=== PATIENT | male | born 1945 | race Caucasian/White ===

== ENCOUNTER → 2020-09-28 12:39 | Outpatient (CLI) | payer MEDICARE, SELFPAY ==
--- NOTE | ~2020-09-28 | XR_ITS ---
XR lumbar spine 2-3V DATE: 09/28/2020 13:10 INDICATION: Back pain TECHNIQUE: AP, lateral, coned lateral lumbosacral views COMPARISON: None FINDINGS: There is mild dextroscoliosis of the thoracolumbar spine. Prominent degenerative changes in the lower thoracic spine. There is multilevel degenerative disc disease of the lumbar spine. No fracture or bone destruction or spondylolisthesis. The lumbar pedicles and included lower thoracic pedicles are intact. The sacroiliac joints are intact. There is extensive calcification of the abdominal aorta without evidence of aneurysm IMPRESSION: Degenerative changes of the thoracic and lumbar spine Reviewed, dictated and finalized at location A. WORKER
== END ==
PROVIDERS: PCP Family Medicine; Visit Provider Nurse Practitioner
DX: M51.34 Other intervertebral disc degeneration, thoracic region (principal); M51.36 Other intervertebral disc degeneration, lumbar region
CPT/HCPCS: 72100

== ENCOUNTER 2021-11-22 08:33 | Outpatient (CLI) | payer MEDICARE, OTHER, SELFPAY ==
--- NOTE | ~2021-11-22 | US_ITS ---
EXAMINATION: US aorta [facility] DATE: 11/22/2021 10:37 NETSUITE CONSULTANT INDICATION: Screening TECHNIQUE: Grayscale, color Doppler, and pulsed Doppler images of the aorta and common iliac arteries were obtained. COMPARISON: None. FINDINGS: The proximal aorta measures 2.2 cm greatest sagittal dimension. The mid aorta measures 2.1 cm greates t sagittal dimension. The distal aorta measures 1.9 cm greatest sagittal dimension. The right common internal iliac artery measures 1.3 cm. The left common iliac artery measures 1.3 cm. IMPRESSION: 1. Normal caliber abdominal aorta without aneurysm. Reviewed, dictated and finalized at location B. UITE CONSULTANT
== END 2021-11-22 08:34 | disposition home or self-care (01) ==
PROVIDERS: PCP Family Medicine; Visit Provider Family Medicine
DX: Z13.6 Encounter for screening for cardiovascular disorders (principal); Z87.891 Personal history of nicotine dependence
CPT/HCPCS: 76706

== ENCOUNTER 2022-01-30 14:58 | Emergency (ER) | payer MEDICARE, OTHER, SELFPAY ==
[2022-01-30 15:05] VITALS: BP 143/64; PULSE 60; RESP 20; TEMP 36.7; O2SAT 100
--- NOTE | 2022-01-30 15:25 | ED.URI ---
HPI - URI/Sore Throat General Chief Complaint: Upper Respiratory Infection Stated Complaint: Cough Time Seen by Provider: 01/30/22 15:20 Source: patient and RN notes reviewed History of Present Illness HPI Narrative: Patient is a 76-year-old male who presents the urgent care with complaints of coughing fits/spasms since Saturday. Patient states that he has been taking Claritin and Delsym without much relief. Denies of any known ill exposures. Denies any fever, chills, nausea or vomiting. Denies of chest pain or shortness of breath. No other acute complaints. No acute distress noted. Patient aware of the plan of care. Some parts of this dictation were generated by voice recognition software and may contain typographical and/or grammatical inaccuracies. Related Data Allergies Allergy/AdvReac Type Severity Reaction Status Date / Time No Known Allergies Allergy Verified 01/30/22 15:32 Review of Systems Review of Systems: CONSTITUTIONAL: Denies fever, chills, or sweats. EYES: Denies visual changes, redness, or discharge. ENT: Denies rhinorrhea, congestion, sore throat, or otalgia. CARDIOVASCULAR: Denies chest pain, palpitations, or edema. RESPIRATORY: Reports of cough spasms GASTROINTESTINAL: Denies abdominal pain, nausea, vomiting, or diarrhea. GENITOURINARY: Denies dysuria or hematuria. SKIN: Denies rash or itching. MUSCULOSKELETAL: Denies back pain, joint pain, or myalgia. NEUROLOGIC: Denies headache, numbness, or weakness. All other systems reviewed are negative, except as documented in HPI. [facility], [facility] Past Medical History Medical History (Updated 01/30/22 @ 15:36 by STEPHANI Mercado) Dyslipidemia Essential (primary) hypertension Surgical History Surgical History History of tonsillectomy and adenoidectomy 1951 [place] teeth extracted 1962 Social History Social History Smoking status: Never smoker Tobacco type: cigarettes Second hand tobacco smoke exposure: No Smoking end date: 09/30/92 Alcohol intake: never Substance use: never Substance use type: does not use Comments At the time of my signature, I reviewed and agree with the nursing past medical, surgical, social, and family history. There is no relevant family history pertinent to the patient complaint. Exam Narrative: GENERAL: This is a well-nourished, well-developed patient, in no apparent distress. HEAD: normocephalic, atraumatic. EYES: PERRL. Sclera clear/white. Vision is grossly intact. EARS: External ears normal, auditory canals clear and without drainage, TMs normal without perforation. Hearing grossly intact. NOSE: External nose normal with no obvious nasal discharge, nares without redness, no rhinorrhea. THROAT: Mucous membranes moist, posterior pharynx clear. NECK: Neck supple CARDIOVASCULAR: Regular rate and rhythm RESPIRATORY: Bronchospasms with deep breathing. Clear to auscultation. Breath sounds equal bilaterally. No wheezes, rales, or rhonchi. SKIN: warm, intact with no suspicious lesions or rash, good texture and turgor. NEURO: awake, alert, and oriented to person, place and time. There were no obvious focal neurologic abnormalities. EXTREMITIES: No clubbing, cyanosis, or edema. Course Course Level of Care: Express Care Visit Vital Signs Vital signs: Vital Signs Temperature 98.1 F 01/30/22 15:05 Pulse Rate 60 01/30/22 15:05 Respiratory Rate 20 01/30/22 15:05 Blood Pressure 143/64 H 01/30/22 15:05 Pulse Oximetry 100 01/30/22 15:05 Temperature 98.1 F 01/30/22 15:05 Pulse Rate 60 01/30/22 15:05 Respiratory Rate 20 01/30/22 15:05 Blood Pressure 143/64 H 01/30/22 15:05 Pulse Oximetry 100 01/30/22 15:05 Reviewed-patient is informed that they may have pre-hypertension or hypertension based on a blood pressure reading in the department. I recommend the patient call the prima
== END 2022-01-30 15:38 | disposition home or self-care (01) ==
PROVIDERS: Emergency Provider Nurse Practitioner Family
DX: J98.01 Acute bronchospasm (principal); E78.5 Hyperlipidemia, unspecified; I10 Essential (primary) hypertension
CPT/HCPCS: 99213; G0463

== ENCOUNTER 2022-04-26 10:28 | Outpatient (CLI) | payer MEDICARE, OTHER, SELFPAY ==
[2022-04-26 19:27] LABS: Alanine Aminotransferase 20 U/L (6-50); Albumin Level 4.2 g/dL (3.5-5.1); Alkaline Phosphatase 52 U/L (38-126); Anion Gap 8 mmol/L (8-16); Aspartate Amino Transferase 29 U/L (17-59); Bilirubin,Total 0.6 mg/dL (0.2-1.3); Blood Urea Nitrogen 18 mg/dL (9-20); Calcium 9.3 mg/dL (8.4-10.2); Carbon Dioxide 30 mmol/L (22-30); Chloride 99 mmol/L (98-107); Estimated Glomerular Filt Rate > 60; Glucose 103 mg/dL (65-110); Potassium 4.3 mmol/L (3.4-5.0); Sodium 137 mmol/L (137-145)
[2022-04-26 20:02] LABS: Hemoglobin A1C 5.7 % (<5.7)
== END 2022-04-26 10:29 | disposition home or self-care (01) ==
LOC: ANHGOSHLAB 10:32
PROVIDERS: PCP Family Medicine; Visit Provider Family Medicine
DX: R73.9 Hyperglycemia, unspecified (principal); E78.5 Hyperlipidemia, unspecified; I10 Essential (primary) hypertension
CPT/HCPCS: 36415; 80053; 83036

== ENCOUNTER 2022-11-20 09:57 | Emergency (ER) | payer MEDICARE, OTHER, SELFPAY ==
[2022-11-20 10:04] VITALS: BP 130/80; PULSE 63; RESP 18; TEMP 36.3; O2SAT 99
--- NOTE | 2022-11-20 10:14 | ED.URI ---
HPI - URI/Sore Throat General Chief Complaint: Upper Respiratory Infection Stated Complaint: Cough/Chest Congestion Time Seen by Provider: 11/20/22 10:10 Source: patient, RN notes reviewed and old records reviewed Mode of arrival: ambulatory Limitations: no limitations History of Present Illness HPI Narrative: 77 year old male presents to the [facility] care with complaints of cough and sneezing for the past 3 days. Patient reports that it is hard to sleep at night due to continuous coughing. He reports that he has taken some Mucinex DM and he also used his inhaler which didn't help. He states that cough is harsh and nonproductive and denies any shortness of breath.,reports no known fevers. MD elicited complaint: cough and rhinorrhea Onset (ago): day(s) (3) Treatments prior to arrival: other (Mucinex DM and used his 's inhaler once) Related Data Home Medications Medication Instructions Recorded Confirmed ascorbic acid (vitamin C) 100 mg 100 mg PO DAILY 11/07/22 11/07/22 tablet Allergies Allergy/AdvReac Type Severity Reaction Status Date / Time No Known Allergies Allergy Verified 11/07/22 14:55 Review of Systems Review of Systems: CONSTITUTIONAL: Denies malaise, chills, sweats, or fever. EYES: Denies visual changes, redness, or discharge. ENT: Reports rhinorrhea, congestion,no sinus pain, no otalgia or sore throat. CARDIOVASCULAR: Denies chest pain, palpitations, or edema. RESPIRATORY: Reports cough.? Denies dyspnea. GASTROINTESTINAL: Denies abdominal pain, nausea, vomiting, diarrhea SKIN: Denies rash or itching. MUSCULOSKELETAL: Denies myalgia. NEUROLOGIC: Denies headache. All systems reviewed & are unremarkable except as noted in HPI and below PMFSH Past Medical History Medical History Dyslipidemia Essential (primary) hypertension Vitamin D deficiency Surgical History Surgical History History of tonsillectomy and adenoidectomy 1951 [place] teeth extracted 1962 Social History Social History Smoking status: Never smoker Tobacco type: cigarettes Second hand tobacco smoke exposure: No Smoking end date: 09/30/92 Alcohol intake: never Substance use: never Substance use type: does not use Lack of Transportation: No Lack of Food: Never True Current Housing: I Have Housing Concerned About Future Housing: No Difficulty Paying Gas/Electric Bills: No Difficulty Paying for Meds: No Currently Unemployed: No Education: Bachelor's Degree Difficulty w/ Childcare or Family Care: No Comments At time of signature, agree with nursing past medical, surgical, social and family history. There is no relevant family history pertinent to the presenting complaint Exam Narrative: GENERAL: Well-appearing, well-nourished, and in no acute distress. HEAD: Normocephalic EYES: PERRLA, conjunctivae clear ENT: Nares clear, turbinates edematous and erythematous, clear discharge. Mucous membranes moist. TM pearly fox with dull light reflex bilaterally; no tragal tenderness. Oropharynx erythematous without lesions. Tonsils not present and throat without exudate, no drooling, no hoarseness, no trismus, uvula midline. NECK: Supple. No lymphadenopathy CHEST: Clear to auscultation, breath sounds equal. No wheezing, rhonchi, rales, or stridor. No respiratory distress, speaks in full sentences.harsh non productive cough,SAO2 99% on room air HEART: Regular rate and rhythm. No murmur heard. SKIN: Warm, dry, no rash. NEURO: Alert and oriented x3. PSYCH: Normal mood and affect Course Course Emergency Course: Patient is aware of diagnosis, understands and agrees to treatment plan.? Anticipatory guidance given.? Patient agrees to follow-up as directed and is aware of reasons to seek care at the emergency depa
== END 2022-11-20 10:47 | disposition home or self-care (01) ==
PROVIDERS: Emergency Provider Registered Nurse; PCP Family Medicine
DX: J06.9 Acute upper respiratory infection, unspecified (principal); Z87.891 Personal history of nicotine dependence; E78.5 Hyperlipidemia, unspecified; I10 Essential (primary) hypertension
CPT/HCPCS: 99213; G0463

== ENCOUNTER 2023-10-09 01:12 | Day surgery (SDC) | payer MEDICARE, OTHER, SELFPAY ==
[2023-09-17 13:58] VITALS: BMI 26.3
--- NOTE | 2023-10-07 11:43 | SUR.PREOP ---
Patient called regarding upcoming procedure. Reviewed preop instructions, appointment times, and procedure prep.
--- NOTE | 2023-10-08 15:27 | P.HP_ITS ---
History of Present Illness History of Present Illness Consent: Risks, benefits, and alternatives have been discussed and questions answered. Patient agrees to proceed with procedure. Chief complaint: neoplasm screening Narrative: Luis Boyer is a 78 year old male who was referred for colon cancer screening. His last colonoscopy was 10 years ago. Review of Systems Review of Systems: All systems reviewed & are unremarkable except as noted in HPI and below PMFSH Past Medical History Medical History Dyslipidemia Essential (primary) hypertension Vitamin D deficiency Surgical History Surgical History History of tonsillectomy and adenoidectomy 1951 [place] teeth extracted 1962 Social History Social History Smoking packs per day: 0.5 Smoking cigarettes per day: 10.0 Years smoked: 20 Smoking pack-years: 10.00 Smoking status: Former smoker Tobacco type: cigarettes Second hand tobacco smoke exposure: No Smoking end date: 09/30/92 Alcohol intake: never Substance use: never Substance use type: does not use Lack of Transportation: No Lack of Food: Never True Current Housing: I Have Housing Concerned About Future Housing: No Difficulty Paying Gas/Electric Bills: No Difficulty Paying for Meds: No Currently Unemployed: No Education: Bachelor's Degree Difficulty w/ Childcare or Family Care: No Living arrangements: with family Spiritual care concerns: No Meds Home Medications and Allergies Home Medications Medication Instructions Recorded Confirmed Type ascorbic acid (vitamin C) 100 mg 100 mg PO DAILY 11/07/22 09/17/23 History tablet simvastatin 20 mg tablet 20 mg PO QHS #90 tabs 04/22/23 09/17/23 Rx losartan 50 mg-hydrochlorothiazide 1 tablet PO DAILY #90 tabs 07/25/23 09/17/23 Rx 12.5 mg tablet Allergies Allergy/AdvReac Type Severity Reaction Status Date / Time No Known Allergies Allergy Verified 10/09/23 11:26 Exam Resp: Auscultation: clear to auscultation bilaterally Cardio: Rate: regular rate Rhythm: regular rhythm GI: GI Palp: Yes Soft to palpation and No Tenderness to palpation present (GI) Assessment and Plan Assessment and plan (1) Colon cancer screening: Code(s): Z12.11 - Encounter for screening for malignant neoplasm of colon Status: Acute Assessment and Plan: Colonoscopy with possible biopsy or polypectomy or cautery or injection of substances.
[2023-10-09 11:27] VITALS: BP 165/85; PULSE 60; RESP 19; TEMP 36.1; O2SAT 99
[2023-10-09] MEDS: LACTATED RINGERS 1,000 ML 150 ML IV CONT (11:37)
--- NOTE | 2023-10-09 11:42 | P.PNAN_ITS ---
Anes - Initial Pre Proc Eval Procedure: Operation Date: 10/09/23 12:30 Proposed Procedures p Screening Colonoscopy - Gilberto Gallagher MD Date/Time: 10/09/23 11:42 Surgeon: Gilberto Gallagher MD Pre Op Diagnosis: neoplasm screening Patient Data Age: 78 Gender: M Height: 1.68 m Weight: 74.3 kg Last Vital Signs Temp 97 F L 10/09/23 11:27 Pulse 60 10/09/23 11:27 Resp 19 10/09/23 11:27 BP 165/85 H 10/09/23 11:27 Pulse Ox 99 10/09/23 11:27 O2 Del Method Room Air 10/09/23 11:27 Allergies Allergy/AdvReac Type Severity Reaction Status Date / Time No Known Allergies Allergy Verified 10/09/23 11:26 Home Medications Medication Instructions Recorded Confirmed Type ascorbic acid (vitamin C) 100 mg 100 mg PO DAILY 11/07/22 09/17/23 History tablet simvastatin 20 mg tablet 20 mg PO QHS #90 tabs 04/22/23 09/17/23 Rx losartan 50 mg-hydrochlorothiazide 1 tablet PO DAILY #90 tabs 07/25/23 09/17/23 Rx 12.5 mg tablet Patient hx anesthesia problems: none Family hx anesthesia problems: none Results Review: All pre-operative results and documents have been reviewed as part of the pre- operative evaluation. [facility] Past Medical History Medical History Dyslipidemia Essential (primary) hypertension Vitamin D deficiency Surgical History Surgical History History of tonsillectomy and adenoidectomy 1951 [place] teeth extracted 1962 Social History Social History Smoking packs per day: 0.5 Smoking cigarettes per day: 10.0 Years smoked: 20 Smoking pack-years: 10.00 Smoking status: Former smoker Tobacco type: cigarettes Second hand tobacco smoke exposure: No Smoking end date: 09/30/92 Alcohol intake: never Substance use: never Substance use type: does not use Lack of Transportation: No Lack of Food: Never True Current Housing: I Have Housing Concerned About Future Housing: No Difficulty Paying Gas/Electric Bills: No Difficulty Paying for Meds: No Currently Unemployed: No Education: Bachelor's Degree Difficulty w/ Childcare or Family Care: No Living arrangements: with family Spiritual care concerns: No Anes - Eval Final PreProcedure Day of Procedure 10/09/23 11:42 Patient weight: normal Heart: regular rate and rhythm Lungs: clear to auscultation Airway: Mallampati scale class II Neurological: alert and oriented Last oral intake: >/= 8 hours ASA classification: II Emergent: no Anesthetic plan: proceed Anesthesia type and monitoring: general GIVS and standard monitoring Results Review: All pre-operative results and documents have been reviewed as part of the pre- operative evaluation. Informed Consent: The patient's anesthetic plan and its attendant risks and benefits were discussed with the patient/family/POA. Questions were solicited and answers provided to the satisfaction of the patient/family/POA.
[2023-10-09 13:05] VITALS: BP 109/64; PULSE 50; RESP 23; O2SAT 99
[2023-10-09 13:15] VITALS: BP 120/73; PULSE 58; RESP 15; O2SAT 100
[2023-10-09 13:25] VITALS: BP 140/72; PULSE 49; RESP 15; O2SAT 100
== END 2023-10-09 13:36 | disposition home or self-care (01) ==
PROVIDERS: PCP Family Medicine; Visit Provider Internal Medicine Gastroenterology
PROC: 0DJD8ZZ Inspection of Lower Intestinal Tract, Via Natural or Artificial Opening Endoscopic (ICD-10-PCS; CPT 45378; principal; 2023-10-09 12:30)
DX: Z12.11 Encounter for screening for malignant neoplasm of colon (principal); D12.5 Benign neoplasm of sigmoid colon; K64.8 Other hemorrhoids; K57.30 Diverticulosis of large intestine without perforation or abscess without bleeding; E78.5 Hyperlipidemia, unspecified; I10 Essential (primary) hypertension; Z87.891 Personal history of nicotine dependence
CPT/HCPCS: 45385; 88305; J2704; J7120

== ENCOUNTER 2024-02-28 10:55 | Outpatient (CLI) | payer MEDICARE, OTHER, SELFPAY ==
--- NOTE | ~2024-02-28 | US_ITS ---
EXAMINATION: US venous doppler LE RT DATE: 02/28/2024 11:34 INDICATION: Right lower limb swelling. Right lower limb edema. TECHNIQUE: Grayscale ultrasound images without and with compression and Doppler ultrasound images of the right lower extremity veins were obtained. COMPARISON: None. FINDINGS: The visualized portions of right common femoral vein, profunda (deep) femoral vein, femoral vein, pop liteal vein, peroneal veins, posterior tibial veins, and greater saphenous vein outflow are patent. I n the right calf, there is 8.8 x 1.4 cm hematoma. IMPRESSION: 1. No deep venous thrombosis. 2. Right calf hematoma. Reviewed, dictated and finalized at location A.
== END 2024-02-28 10:56 | disposition home or self-care (01) ==
LOC: ANHIMG 10:58
PROVIDERS: PCP Family Medicine; Visit Provider Emergency Medicine
DX: M79.89 Other specified soft tissue disorders (principal); M79.81 Nontraumatic hematoma of soft tissue
CPT/HCPCS: 93971

== ENCOUNTER 2024-05-04 21:37 | Emergency (ER) | payer MEDICARE, OTHER, SELFPAY ==
--- NOTE | ~2024-05-04 | CT_ITS ---
Clinical Indication: Dyspnea CT Scan of the Chest with Contrast: Technique: Contiguous sections were acquired throughout the chest after intravenous administration of 100 cc of Omnipaque 350. Dose reduction technique was used on this scan by utilizing automated expos ure control and iterative reconstruction technique. The dose-length product (DLP) was 573.93 mGy-cm. Findings: There is no evidence of any significant mediastinal, hilar or axillary lymphadenopathy. There is no f illing defect in the pulmonary arterial tree to suggest pulmonary embolus. Ascending aorta measures 4 .3 cm in diameter. No aortic dissection seen. There is no evidence of pleural or pericardial effusion. The lungs are clear. No pulmonary nodules or infiltrates are noted. Images through the upper abdomen reveal multiple gallstones filling the gallbladder. Impression: No evidence of pulmonary embolus or aortic dissection. 4.3 cm ascending aortic aneurysm.. Clear lungs. Cholelithiasis. Reviewed, dictated and finalized at [facility]. Impression: No evidence of pulmonary embolus or aortic dissection. 4.3 cm ascending aortic aneurysm.. Clear lungs. Cholelithiasis.
--- NOTE | ~2024-05-04 | XR_ITS ---
EXAMINATION: XR chest 2V Exam Date/Time: 05/04/2024 21:55 CDT HISTORY: dyspnea COUGH Comparison: 02/03/2014. RESULT: Lines, tubes, and devices: None. Lungs and pleura: Clear. Cardiomediastinal silhouette: Stable aortic ectasia. Other: No acute osseous or upper abdominal finding. IMPRESSION: No acute cardiopulmonary process. Reviewed, dictated and finalized at location K.
[2024-05-04 21:38] VITALS: PULSE 77; O2SAT 100
[2024-05-04 21:39] VITALS: PULSE 72; RESP 22; O2SAT 100
--- NOTE | 2024-05-04 21:52 | ECG_ITS ---
Test Date: 2024-05-04 22:09:11 Measurements Intervals [place] Rate: 63 P: 76 W[place]: 217 QRS: -41 QRSD: 105 T: 74 QT: 429 QTc: 442 Interpretive Statements SINUS RHYTHM WITH FIRST DEGREE AV BLOCK MARKED LEFT AXIS DEVIATION [QRS AXIS < -30] INCOMPLETE RIGHT BUNDLE BRANCH BLOCK POSSIBLE LATERAL MYOCARDIAL INFARCTION , OF INDETERMINATE AGE [30 ms Q WAVE IN I/aVL/V5/V6] No previous ECG available for comparison Electronically Signed On 05-05-2024 14:41:27 CDT by Chirag Caldwell M.D.
[2024-05-04 22:12] VITALS: BP 149/67; PULSE 59; RESP 16; TEMP 36.6; O2SAT 99
[2024-05-04 22:25] LABS: Basophils Percent Auto 0.6 % (0.2-1.2); Eosinophils Absolute Auto 0.2 K/mm3 (0-0.3); Eosinophils Percent Auto 3.2 % (0-4.4); Hematocrit 38.2 % (42.0-52.0); Hemoglobin 13.1 g/dL (14.0-18.0); Immature Granulocyte Absolute 0.02 K/mm3 (0.00-0.031); Immature Granulocyte Percent A 0.3 % (0-0.5); Lymphocytes Absolute Auto 1.66 K/mm3 (0.9-3.2); Lymphocytes Percent Auto 26.4 % (18.3-44.2); Mean Corpuscular HGB Conc 34.3 g/dl (32-36); Mean Corpuscular Volume 90.3 fl (80-100); Mean Platelet Volume 9.1 fl (7.4-10.4); Monocytes Absolute Auto 0.6 K/mm3 (0.1-0.6); Monocytes Percent Auto 10.2 % (2.6-8.5); Neutrophils Absolute Auto 3.7 K/mm3 (1.3-6.7); Neutrophils Percent Auto 59.3 % (45.5-73.1); Platelet Count Result 207 k/mm3 (150-375); Red Blood Count 4.23 M/mm3 (4.6-6.20); Red Cell Distribution Width 13.4 % (11.5-14.5); White Blood Count 6.3 K/mm3 (4.5-10.0)
[2024-05-04 22:39] LABS: Alanine Aminotransferase 17 U/L (6-50); Albumin Level 4.4 g/dL (3.5-5.1); Alkaline Phosphatase 45 U/L (38-126); Anion Gap 10 mmol/L (4-12); Aspartate Amino Transferase 24 U/L (17-59); Bilirubin,Total 0.3 mg/dL (0.2-1.3); Blood Urea Nitrogen 25 mg/dL (9-20); Calcium 8.5 mg/dL (8.4-10.2); Carbon Dioxide 29 mmol/L (22-30); Chloride 100 mmol/L (98-107); Estimated CRCL calculation 54 ml/min; Estimated Glomerular Filt Rate > 60; Glucose 124 mg/dL (65-110); Potassium 3.1 mmol/L (3.4-5.0); Sodium 139 mmol/L (137-145)
[2024-05-05 00:35] VITALS: PULSE 59; O2SAT 99
[2024-05-05 01:17] LABS: NT Pro B Type Natriuretic Pept 112 pg/mL (19.9-100); Troponin I < 0.012 ng/mL (0.000-0.034)
[2024-05-05] MEDS: methylPREDNISolone SOD SUCC 125 MG VIAL IV PUSH (01:47)
[2024-05-05 01:48] VITALS: BP 133/82; PULSE 60; RESP 14; O2SAT 98
[2024-05-05 01:48] LABS: Troponin I < 0.012 ng/mL (0.000-0.034)
[2024-05-05] MEDS: IPRATROPIUM 0.5 MG/ALBUTEROL SULFATE 2.5 MG AMPUL.NEB 3 ML INHALATION (01:49)
[2024-05-05 01:50] VITALS: PULSE 54; RESP 17
[2024-05-05 01:58] VITALS: PULSE 67; RESP 15
--- NOTE | 2024-05-05 04:38 | ED.GENADULT ---
HPI - General Adult General Chief complaint: Shortness of Breath/Dyspnea Stated complaint: sob Time Seen by Provider: 05/05/24 00:53 History of Present Illness HPI narrative: Patient is a 79-year-old gentleman who presents emergency department with chief complaint of shortness of breath. Patient reports that he has had a family member that is been sick with recent upper respiratory infection reports this evening he woke up with a cough and felt very short of breath. Patient reports he was wheezing at that time was given a inhaler that his family member uses had significant improvement. Patient denies fever reports that he had a little bit of tightness in his chest when this happen. Patient denies ripping sensation or tearing sensation of patient reports that he has prior history of hypertension and hyperlipidemia Related Data Home Medications Medication Instructions Recorded Confirmed ascorbic acid (vitamin C) 100 mg 100 mg PO DAILY 11/07/22 04/07/24 tablet Allergies Allergy/AdvReac Type Severity Reaction Status Date / Time No Known Allergies Allergy Verified 04/07/24 10:49 Review of Systems Review of Systems: A 10 system review of systems was completed on the patient and is negative except for what is stated in the HPI. Nursing and ancillary documentation was reviewed. [facility] Past Medical History Medical History Dyslipidemia Essential (primary) hypertension Gastrocnemius muscle strain Vitamin D deficiency Surgical History Surgical History History of tonsillectomy and adenoidectomy 1951 [place] teeth extracted 1962 Social History Social History Smoking packs per day: 0.5 Smoking cigarettes per day: 10.0 Years smoked: 20 Smoking pack-years: 10.00 Smoking status: Former smoker Tobacco type: cigarettes Second hand tobacco smoke exposure: No Smoking end date: 09/30/92 Alcohol intake: never Substance use: never Substance use type: does not use Lack of Transportation: No Lack of Food: Never True Current Housing: I Have Housing Concerned About Future Housing: No Difficulty Paying Gas/Electric Bills: No Difficulty Paying for Meds: No Currently Unemployed: No Education: Bachelor's Degree Difficulty w/ Childcare or Family Care: No Living arrangements: with family Spiritual care concerns: No Exam Narrative: GENERAL: Well-appearing, well-nourished, and in no acute distress. HEAD: Normocephalic, atraumatic. EYES: PERRLA and EOMI. ENT: Nares clear, no rhinorrhea or epistaxis. Mucous membranes moist. NECK: Supple. CHEST: Clear to auscultation. No respiratory distress. HEART: Regular rate and rhythm. No murmur heard. Normal peripheral pulses. ABDOMEN: Soft, nontender, nondistended, normal active bowel sounds. EXTREMITIES: Normal range of motion. No edema. SKIN: Warm, dry, no rash. NEURO: No focal deficits. Alert and oriented x3. PSYCH: Normal mood and affect. Course Vital Signs Vital signs: Vital Signs Pulse Rate 77 05/04/24 21:38 Pulse Oximetry 100 05/04/24 21:38 Temperature 36.6 C 05/04/24 22:12 Pulse Rate 67 05/05/24 01:58 Respiratory Rate 15 05/05/24 01:58 Blood Pressure 133/82 05/05/24 01:48 Pulse Oximetry 98 05/05/24 01:48 Oxygen Delivery Room Air 05/05/24 00:35 Medical Decision Making [facility] Narrative Medical decision making narrative: Differential diagnosis includes pneumonia, pulmonary embolism, ACS Laboratory studies were obtained on the patient showed negative troponin BNP was not significantly elevated EKG showed no acute ischemic changes CTA chest showed no evidence of pulmonary embolism but did she incidentally show a 4.5 cm descending aortic aneurysm without dissection. Incidentally CT also did show
[2024-05-05 05:02] VITALS: BP 133/82; PULSE 59; RESP 14; O2SAT 96
== END 2024-05-05 05:05 | disposition home or self-care (01) ==
PROVIDERS: Preventive Medicine Aerospace Medicine; Emergency Provider Emergency Medicine; PCP Family Medicine
DX: J20.8 Acute bronchitis due to other specified organisms (principal); I71.20 Thoracic aortic aneurysm, without rupture, unspecified; K80.20 Calculus of gallbladder without cholecystitis without obstruction; E78.5 Hyperlipidemia, unspecified; I10 Essential (primary) hypertension
CPT/HCPCS: 36415; 71046; 71275; 80053; 83880; 84484; 85025; 93005; 94640; 96374; 99284; J2919; Q9967

== ENCOUNTER 2024-06-10 12:32 | Outpatient (CLI) | payer MEDICARE, OTHER, SELFPAY ==
[2024-06-10 19:34] LABS: Basophils Absolute Auto 0.1 K/mm3 (0.0-0.1); Eosinophils Absolute Auto 0.1 K/mm3 (0-0.3); Eosinophils Percent Auto 2.5 % (0-4.4); Hematocrit 39.6 % (42.0-52.0); Hemoglobin 13.3 g/dL (14.0-18.0); Immature Granulocyte Absolute 0.01 K/mm3 (0.00-0.031); Immature Granulocyte Percent A 0.2 % (0-0.5); Lymphocytes Absolute Auto 1.27 K/mm3 (0.9-3.2); Lymphocytes Percent Auto 24.3 % (18.3-44.2); Mean Corpuscular HGB Conc 33.6 g/dl (32-36); Mean Corpuscular Volume 92.3 fl (80-100); Mean Platelet Volume 9.6 fl (7.4-10.4); Monocytes Absolute Auto 0.6 K/mm3 (0.1-0.6); Monocytes Percent Auto 10.5 % (2.6-8.5); Neutrophils Absolute Auto 3.2 K/mm3 (1.3-6.7); Neutrophils Percent Auto 61.5 % (45.5-73.1); Platelet Count Result 208 k/mm3 (150-375); Red Blood Count 4.29 M/mm3 (4.6-6.20); Red Cell Distribution Width 13.3 % (11.5-14.5); White Blood Count 5.2 K/mm3 (4.5-10.0)
[2024-06-10 21:10] LABS: Alanine Aminotransferase 20 U/L (6-50); Albumin Level 4.1 g/dL (3.5-5.1); Alkaline Phosphatase 47 U/L (38-126); Anion Gap 7 mmol/L (4-12); Aspartate Amino Transferase 29 U/L (17-59); Bilirubin,Total 0.7 mg/dL (0.2-1.3); Blood Urea Nitrogen 17 mg/dL (9-20); Calcium 8.7 mg/dL (8.4-10.2); Carbon Dioxide 31 mmol/L (22-30); Chloride 98 mmol/L (98-107); Cholesterol 143 mg/dL (0-200); Estimated Glomerular Filt Rate > 60; Glucose 90 mg/dL (65-110); HDL Direct 54 mg/dL; Sodium 136 mmol/L (137-145); Triglycerides 65 mg/dL (<150)
[2024-06-10 21:21] LABS: LDL Cholesterol Direct 72 mg/dL
[2024-06-12 14:24] LABS: PSA, Free 0.3 ng/mL; PSA, Total 1.2 ng/mL (< OR = 4.0); Percent Free Prostate Spec Ag 25 % (calc) (>25)
[2024-06-14 12:58] LABS: Vitamin D 1,25 (OH)2 Total 25 pg/mL (18-72); Vitamin D2 1,25 (OH)2 <8 pg/mL; Vitamin D3 1,25 (OH)2 25 pg/mL
== END 2024-06-10 12:33 | disposition home or self-care (01) ==
LOC: ANHGOSHLAB 12:33
PROVIDERS: PCP Family Medicine; Visit Provider Nurse Practitioner Family
DX: E55.9 Vitamin D deficiency, unspecified (principal); I10 Essential (primary) hypertension; Z12.5 Encounter for screening for malignant neoplasm of prostate
CPT/HCPCS: 36415; 80053; 80061; 82652; 84153; 84154; 85025; G0103

== ENCOUNTER 2025-01-11 10:13 | Outpatient (CLI) | payer MEDICARE, OTHER, SELFPAY ==
--- NOTE | ~2025-01-11 | MR_ITS ---
MRI of the brain Clinical History: Other signs/symptoms of cognitive function Technique: Axial and sagittal T1-weighted images were acquired. These were followed by axial T2-weigh cortney, diffusion weighted, gradient, and FLAIR images. Findings: No acute infarct, intracranial hemorrhage, mass lesion seen. Probable focal chronic lacunar infarct in the right periventricular white matter. Ventricles and subarachnoid spaces are unremarkable. Orbits are unremarkable. Paranasal sinuses and m astoid air cells are clear. Major intracranial flow voids are intact. Sagittal midline structures are intact. IMPRESSION: No acute abnormality. Probable chronic lacunar infarct in right periventricular white matter. Reviewed, dictated and finalized at location .
--- OUTSIDE RECORDS SUMMARY | 2025-01-11 11:25 | XMS_ITS | Clinical Summary ---
Author Organization [facility] Care Team Providers Care Violin Restorer Name Role Phone Unavailable Primary Care Provider Unavailabl e Social History Tobacco Use Types Packs/Day Years Used Date Smoking Tobacco: Never Assessed Sex and Gender Information Value Date Recorded Sex Assigned at Not on file Legal Sex Male 1:36 PM CDT Gender Identity Not on file Sexual Orientation Not on file Plan of Treatment Health Maintenance Due Date Last Done Comments Hepatitis C Virus (HCV) Screening 1945 TdaP Immunization 1945 Zoster Immunization (2 of 2) 03/14/2021 01/17/2021 Respiratory Syncytial Virus (RSV) Immunization (Adult) (1 - 1-dose 75+ series) 2022 Influenza Immunization (#1) 2024 11/10/2019 SARS-COV-2 Immunization ( season) 2024 10/11/2021, 01/02/2021, 12/12/2020 Pneumococcal Immunization (5 0+ years) Completed 11/02/2020, 11/10/2019 Hepatitis B Immunization Aged Out No longer eligible based on patient's age to complete this topic Meningococcal Immunization (ACWY) Aged Out No longer eligible b ased on patient's age to complete this topic Rotavirus Immunization Aged Out No lo nger eligible based on patient's age to complete this topic
== END 2025-01-11 10:14 | disposition home or self-care (01) ==
PROVIDERS: PCP Family Medicine; Visit Provider Family Medicine
DX: R41.89 Other symptoms and signs involving cognitive functions and awareness (principal)
CPT/HCPCS: 70551

== ENCOUNTER 2025-02-28 08:41 | Emergency (ER) | payer MEDICARE, OTHER, SELFPAY ==
--- OUTSIDE RECORDS SUMMARY | 2025-02-28 08:43 | XMS_ITS | Clinical Summary ---
Author Organization [facility] Care Team Providers Care Certified Nutritionist Name Role Phone Unavailable Primary Care Provider [...]
[2025-02-28 08:46] VITALS: BP 126/71; PULSE 71; RESP 20; TEMP 37.1; O2SAT 100
--- NOTE | 2025-02-28 08:46 | ED_ITS ---
HPI - URI/Sore Throat General Chief Complaint: Upper Respiratory Infection Stated Complaint: sore throat, persistent cough Related Data Home Medications ?Medication ?Instructions ?Recorded ?Confirmed ?Last Taken ?Type ascorbic acid (vitamin C) 100 mg 100 mg PO DAILY 11/07/22 12/16/24 Unknown H istory tablet minoxidil 2.5 mg tablet 2.5 mg PO DAILY 12/16/24 12/16/24 Unknown History simvastatin 20 mg tablet 20 mg PO QHS 12/16/24 12/16/24 Unknown History tretinoin 0.025 % topical cream 1 applic topical DAILY 12/16/24 12/16/24 Unknown History Allergies Allergy/AdvReac Type Severity Reaction Status Date / Time No Known Allergies Allergy Verified 12/16/24 12:56 [facility] Past Medical History Medical History Ascending aortic aneurysm (~04/2024) AAA (abdominal aortic aneurysm) Gastrocnemius muscle strain Vitamin D deficiency Dyslipidemia Essential (primary) hypertension Surgical History Surgical History [place] teeth extracted 1962 History of tonsillectomy and adenoidectomy 1951 Social History Social History Smoking packs per day: 0.5 Smoking cigarettes per day: 10.0 Years smoked: 20 Smoking pack-years: 10.00 Smoking status: Former smoker Tobacco type: cigarettes Second hand tobacco smoke exposure: No Smoking end date: 03/30/94 Alcohol intake: never Substance use: never Substance use type: does not use Do You Feel Safe in your Home?: Yes Lack of Transportation: No Lack of Food: Never True Current Housing: I Have Housing Concerned About Future Housing: No Difficulty Paying Gas/Electric Bills: No Difficulty Paying for Meds: No Currently Unemployed: No Education: Bachelor's Degree Difficulty w/ Childcare or Family Care: No Living arrangements: with family Occupation/Education: retired Spiritual care concerns: No Discharge Plan Discharge Patient Language: Danish Prescriptions: No Action ascorbic acid (vitamin C) 100 mg tablet 100 mg PO DAILY losartan-hydrochlorothiazide 100-25 mg tablet 1 tablet PO DAILY Qty: 90 3RF simvastatin 20 mg tablet 20 mg PO QHS minoxidil 2.5 mg tablet 2.5 mg PO DAILY tretinoin 0.025 % cream 1 applic topical DAILY Follow-up/Referrals: Viviane Benavidez MD [Primary Care Provider] -
--- NOTE | 2025-02-28 08:49 | ED.URI ---
HPI - URI/Sore Throat General Chief Complaint: Upper Respiratory Infection Stated Complaint: sore throat, persistent cough Time Seen by Provider: 02/28/25 09:00 Source: patient, family, RN notes reviewed and old records reviewed Mode of arrival: ambulatory Limitations: no limitations History of Present Illness HPI Narrative: 79 year old male who presents to [facility] with complaints of sore throat pain and persistent cough since Saturday evening. Patient reports that cough has been productive at times of clear phlegm. Patient reports that sore throat is better and feels like he has some sinus drainage in the back of his throat.Patient reports that his cough is worse at night and he hasn't slept well for 4 nights due to cough. Patient reports that he has been taking Robitussin DM and cold medication without improvement. Patient reports that he has noted himself wheezing some at night and had inhaler at home which he states he used but is now empty. Patient denies any fevers, states some chills, no sweats, states he is always cold. Patient reports that he has had past history of bronchitis. MD elicited complaint: cough and sore throat Pertinent past history: other (bronchitis) Onset (ago): day(s) (4) Consistency: constant Severity: moderate Description of mucous: clear Able to tolerate fluids by mouth: Yes Treatments prior to arrival: cold medicine and other (Robitussin DM) Related Data Home Medications ?Medication ?Instructions ?Recorded ?Confirmed ?Last Taken ?Type ascorbic acid (vitamin C) 100 mg 100 mg PO DAILY 11/07/22 12/16/24 Unknown History tablet minoxidil 2.5 mg tablet 2.5 mg PO DAILY 12/16/24 12/16/24 Unknown History simvastatin 20 mg tablet 20 mg PO QHS 12/16/24 12/16/24 Unknown History tretinoin 0.025 % topical cream 1 applic topical DAILY 12/16/24 12/16/24 Unknown History Allergies Allergy/AdvReac Type Severity Reaction Status Date / Time No Known Allergies Allergy Verified 12/16/24 12:56 Review of Systems Review of Systems: CONSTITUTIONAL: Reports malaise,some chills, no sweats, no fever. EYES: Denies visual changes, redness, or discharge. ENT: Reports rhinorrhea, congestion,no sinus pain, no otalgia and resolved sore throat. CARDIOVASCULAR: Denies chest pain, palpitations, or edema. RESPIRATORY: Reports productive cough.? Denies dyspnea reports has noted some wheezing at night GASTROINTESTINAL: Denies abdominal pain, nausea, vomiting, diarrhea SKIN: Denies rash or itching. MUSCULOSKELETAL: Denies myalgia. NEUROLOGIC: Denies headache. All systems reviewed & are unremarkable except as noted in HPI and below PMFSH Past Medical History Medical History Ascending aortic aneurysm (~04/2024) AAA (abdominal aortic aneurysm) Gastrocnemius muscle strain Vitamin D deficiency Dyslipidemia Essential (primary) hypertension Surgical History Surgical History [place] teeth extracted 1962 History of tonsillectomy and adenoidectomy 1951 Social History Social History Smoking packs per day: 0.5 Smoking cigarettes per day: 10.0 Years smoked: 20 Smoking pack-years: 10.00 Smoking status: Former smoker Tobacco type: cigarettes Second hand tobacco smoke exposure: No Smoking end date: 03/30/94 Alcohol intake: never Substance use: never Substance use type: does not use Do You Feel Safe in your Home?: Yes Lack of Transportation: No Lack of Food: Never True Current Housing: I Have Housing Concerned About Future Housing: No Difficulty Paying Gas/Electric Bills: No Difficulty Paying for Meds: No Currently Unemployed: No Education: Bachelor's Degree Difficulty w/ Childcare or Family Care: No Living arrangements: with family Occupation/Education: retired Spiritual care concerns: No Comments At time of signature, agree with nursing past medical, surgical, social and family history. There is no relevant family history pertinent to the presenting complaint Exam Narrative: GENERAL: Well-appearing, well-nourished, and in no acute distress. HEAD: Normocephalic EYES: PERRLA, conjunctivae clear ENT: Nares clear, turbinates edematous and erythematous, clear discharge. Mucous membranes moist. TM pearly fox with dull light reflex bilaterally; some wax to right ear, no tragal tenderness. Oropharynx erythematous without lesions. Tonsils not present and throat without exudate, no drooling, no hoarseness, no trismus, uvula midline, post nasal drainage noted. NECK: Supple. No lymphadenopathy CHEST: Clear to auscultation, breath sounds equal. No wheezing, rhonchi, rales, or stridor. No respiratory distress, speaks in full sentences. frequent productive cough SAO2 100% on room air HEART: Regular rate and rhythm. No murmur heard. SKIN: Warm, dry, no rash. NEURO: Alert and oriented x3. PSYCH: Normal mood and affect Course Course Emergency Course: Patient is aware of diagnosis, understands and agrees to treatment plan.? Anticipatory guidance given.? Patient agrees to follow-up as directed and is aware of reasons to seek care at the emergency department. Portions of this record may have been created with voice recognition software Level of Care: Express Care Visit Vital Signs Vital signs: Vital Signs Temperature 37.1 C 02/28/25 08:46 Pulse Rate 71 02/28/25 08:46 Respiratory Rate 20 02/28/25 08:46 Blood Pressure 126/71 02/28/25 08:46 Pulse Oximetry 100 02/28/25 08:46 Oxygen Delivery Room Air 02/28/25 08:46 Temperature 37.1 C 02/28/25 08:46 Pulse Rate 71 02/28/25 08:46 Respiratory Rate 20 02/28/25 08:46 Blood Pressure 126/71 02/28/25 08:46 Pulse Oximetry 100 02/28/25 08:46 Oxygen Delivery Room Air 02/28/25 08:46 Reviewed MDM - URI/Sore Throat MDM Narrative Medical decision making narrative: Differential diagnosis considered: Wright virus, strep pharyngitis, allergic rhinitis, upper respiratory tract infection, sinusitis, rhinosinusitis, nasopharyngitis. viral pharyngitis, otitis media, otitis externa, pneumonia, bronchitis, viral cough syndrome, viral syndrome, and influenza.? Exam findings show no acute concerns or changes; patient is non-toxic appearing and is in no distress.? Patient is appropriate for outpatient treatment and follow-up. Differential Diagnosis Differential diagnosis: Likely upper respiratory infection, sinusitis, viral infection, bronchitis, pharyngitis and other (acute cough) Medical Records Attestation: I reviewed the patient's medical records. Lab Data Attestation: I reviewed the patient's lab results. Critical Care Time Critical Care Time Critical Care Time: No Discharge Plan Discharge Clinical Impression: URI, acute, Acute cough Patient Disposition: Home Condition: Stable Instructions: Upper Respiratory Infection (ED), Acute Cough (ED) Additional Instructions: Increase fluids especially juices and water [id number] cough and cold medicine of your choice for your symptoms make sure safe with hypertension Zyrtec Claritin or [place] daily include Coricidin brand decongestant Continue your inhaler/nebulizer as directed Steroids as directed--take with food heat to the face 20-30 minutes 4-6 times a day for pain Salt water gargles, throat lozenges or throat sprays as desired If your symptoms persist, change or worsen significantly before you can contact your personal physician then please, without delay, go to the emergency department for further evaluation. Follow-up with PCP in 7-10 days or sooner if needed Follow up with PCP soon in regards to your blood pressure which is elevated above threshold for referral. Blood pressure above 120/80 may indicate pre-hypertension. Minimal systolic elevation at 126/71 Patient Language: Chadian Prescriptions: New prednisone 20 mg tablet 40 mg PO DAILY 5 Days Qty: 10 0RF albuterol sulfate [Ventolin HFA] 90 mcg/actuation HFA aerosol inhaler 2 puff inhalation QID PRN (Reason: shortness of breath or wheezing) Qty: 6.7 0RF No Action ascorbic acid (vitamin C) 100 mg tablet 100 mg PO DAILY losartan-hydrochlorothiazide 100-25 mg tablet 1 tablet PO DAILY Qty: 90 3RF simvastatin 20 mg tablet 20 mg PO QHS minoxidil 2.5 mg tablet 2.5 mg PO DAILY tretinoin 0.025 % cream 1 applic topical DAILY Follow-up/Referrals: Viviane Benavidez MD [Primary Care Provider] - Time of Disposition: 09:18 Quality Brie Coma Scale Eyes: Open Verbal: Oriented and Alert Motor: Follows Commands Brie Coma Total Score: 15
== END 2025-02-28 09:28 | disposition home or self-care (01) ==
PROVIDERS: Emergency Provider Registered Nurse; PCP Family Medicine
DX: J06.9 Acute upper respiratory infection, unspecified (principal); R05.9 Cough, unspecified; Z87.891 Personal history of nicotine dependence; I10 Essential (primary) hypertension; E78.5 Hyperlipidemia, unspecified
CPT/HCPCS: 99213; G0463

== ENCOUNTER 2025-06-25 12:26 | Outpatient (CLI) | payer MEDICARE, OTHER, SELFPAY ==
--- NOTE | ~2025-06-25 | CT_ITS ---
CTA CHEST CLINICAL HISTORY: Aneurysm of the ascending aorta, without rupture . COMPARISON: CTA chest 05/05/2024 TECHNIQUE: Helical CTA performed from thoracic inlet to upper abdomen 100 mL Omnipaque 350 Coronal, sagittal reformats. Multiplanar MIPS CT images acquired with automatic exposure control for dose reduction DLP: 602 mGy-cm FINDINGS: Pulmonary arteries: No PE. Thoracic Aorta: Unchanged size, 4.0 cm ascending segment, 4.3 cm distal arch. Mild atherosclerotic disease. Heart/pericardium: Cardiomegaly. RV/LV ratio: Normal. Coronary artery calcifications. Lungs/Pleura: Clear. Tracheobronchial tree: Patent. Nodes: No enlarged nodes. Bones: No acute bony abnormality. Soft tissues: Unremarkable. Visualized upper abdomen: Gallstones. IMPRESSION: 1. No acute cardiopulmonary findings. 2. Thoracic aorta unchanged in size, with fusiform ectasia of 4.3 cm along distal arch. Reviewed, dictated and finalized at location R. IMPRESSION: 1. No acute cardiopulmonary findings. 2. Thoracic aorta unchanged in size, with fusiform ectasia of 4.3 cm along dis ted arch.
[2025-06-25 13:04] LABS: Estimated Glomerular Filt Rate 59
== END 2025-06-25 12:27 | disposition home or self-care (01) ==
LOC: MICIMG 12:27
PROVIDERS: PCP Family Medicine; Visit Provider Internal Medicine Cardiovascular Disease
DX: I77.810 Thoracic aortic ectasia (principal)
CPT/HCPCS: 71275; Q9967

== ENCOUNTER 2025-09-13 11:00 | Outpatient (CLI) | payer MEDICARE, OTHER, SELFPAY ==
--- NOTE | ~2025-09-13 | US_ITS ---
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 Examination: US carotid duplex BI Comparison: None Technique: Grayscale, color, duplex/spectral Doppler sonography carotid and vertebral arteries. Distal CCA and Peak ICA systolic velocities provided. Society of Radiologists in Ultrasound (SRU) consensus criteria utilized, indirectly assessing stenosis by velocities. Findings: Mild plaque. Right side: CCA - 72 cm/sec. ICA - 64 cm/sec. ICA/CCA - 0.9 Left Side: CCA - 52 cm/sec. ICA - 60 cm/sec. ICA/CCA - 1.1 Normal antegrade flow measured bilateral vertebral arteries. 19 mm heterogeneous nodule right lobe thyroid. IMPRESSION: 1. No hemodynamically significant ICA stenosis (i.e., if any stenosis, less than 50%). 2. Normal bilateral antegrade vertebral artery flow. 3. 19 mm nodule right lobe thyroid. Recommend dedicated thyroid ultrasound. Stenosis measured by Society of Radiologists in Ultrasound (SRU) criteria. Reviewed, dictated and finalized at location R. MENT MANAGEMENT ANALYST IMPRESSION: 1. No hemodynamically significant ICA stenosis (i.e., if any stenosis, less th an 50%). 2. Normal bilateral antegrade vertebral artery flow. 3. 19 mm nodule right lobe thyroid. Recommend dedicated thyroid ultrasound. Stenosis measured by Society of Radiologists in Ultrasound (SRU) criteria.
== END 2025-09-13 11:01 | disposition home or self-care (01) ==
PROVIDERS: PCP Family Medicine; Visit Provider Family Medicine
DX: I63.81 Other cerebral infarction due to occlusion or stenosis of small artery (principal); Z86.73 Personal history of transient ischemic attack (TIA), and cerebral infarction without residual deficits
CPT/HCPCS: 93880